=== PATIENT | female | born 1990 | race Caucasian/White ===

== ENCOUNTER 2017-06-02 13:31 | Emergency (ER) | payer MEDICAID ==
--- NOTE | 2017-06-02 15:25 | EDM.PDOC ---
ED HPI GENERAL MEDICAL PROBLEM - General Chief Complaint: Chest Pain Stated Complaint: FEELS LIKE HEART IS STRESSED Time Seen by Provider: 06/02/17 14:50 Source of Information: Reports: Patient, Family History Limitations: Reports: No Limitations - History of Present Illness INITIAL COMMENTS - FREE TEXT/NARRATIVE: Alise reports feelings of chest tightness with feeling that her heart is stretching for three days. She reports she has a history of anxiety. She states she was instructed to increase her dose of propanolol and has lorazepam to take, however she has not done this. She denies fever, chills, nausea, vomiting, change in bowel or bladder habits. - Related Data Allergies Allergy/AdvReac Type Severity Reaction Status Date / Time No Known Allergies Allergy Verified 06/02/17 14:26 Home Meds: Home Meds LORazepam 06/02/17 [History] Propranolol [Inderal] 06/02/17 [History] Ziprasidone HCl [Geodon] 60 mg PO BEDTIME 06/02/17 [History] lamoTRIgine [Lamotrigine] 06/02/17 [History] Past Medical History Psychiatric History: Reports: Anxiety, Depression Social & Family History - Tobacco Use Smoking Status *Q: Current Every Day Smoker Years of Tobacco use: 6 Packs/Tins Daily: 0.5 ED ROS GENERAL - Review of Systems Review Of Systems: See Below Constitutional: Denies: Fever, Chills, Malaise, Weakness HEENT: Reports: No Symptoms Respiratory: Denies: Shortness of Breath, Wheezing, Cough, Sputum, Hemoptysis Cardiovascular: Reports: Other (She complains of tightness to midsternal area that is intermittent. Activity does not worsen sensation. ). Denies: Blood Pressure Problem, Dyspnea on Exertion, Edema, Lightheadedness, Orthopnea, Palpitations, PND, Syncope Endocrine: Reports: No Symptoms GI/Abdominal: Reports: No Symptoms Musculoskeletal: Reports: No Symptoms Skin: Reports: No Symptoms Neurological: Reports: No Symptoms Psychiatric: Reports: Anxiety Hematologic/Lymphatic: Reports: No Symptoms Immunologic: Reports: No Symptoms ED EXAM, GENERAL - Physical Exam Exam: See Below Free Text/Narrative:: Alise is an alert, oriented and pleasant 27 year old female presenting to the Emergency room with complaints of chest tightness/stretching sensation for three days. Exam Limited By: No Limitations General Appearance: Alert, WD/WN Eye Exam: Bilateral Eye: EOMI, Normal Inspection, PERRL Ears: Normal External Exam, Normal Canal, Hearing Grossly Normal, Normal TMs Ear Exam: Bilateral Ear: Auricle Normal, Canal Normal, TM normal Throat/Mouth: Normal Inspection, Normal Lips, Normal Teeth, Normal Gums, Normal Oropharynx, Normal Voice, No Airway Compromise Head: Atraumatic, Normocephalic Neck: Normal Inspection, Supple, Non-Tender, Full Range of Motion. No: Lymphadenopathy (R), Lymphadenopathy (L) Respiratory/Chest: No Respiratory Distress, Lungs Clear, Normal Breath Sounds, No Accessory Muscle Use, Chest Non-Tender Cardiovascular: Normal Peripheral Pulses, Regular Rate, Rhythm, No Edema, No Gallop, No Murmur, No Rub Peripheral Pulses: 2+: Carotid (L), Carotid (R), Radial (L), Radial (R), Dorsalis Pedis (L), Dorsalis Pedis (R) GI/Abdominal: Normal Bowel Sounds, Soft, Non-Tender, No Organomegaly, No Distention, No Mass Back Exam: Normal Inspection, Full Range of Motion. No: CVA Tenderness (R), CVA Tenderness (L), Muscle Spasm, Paraspinal Tenderness, Vertebral Tenderness Extremities: Normal Inspection, Normal Range of Motion, Non-Tender, No Pedal Edema, Normal Capillary Refill Neurological: Alert, Oriented, CN II-XII Intact, Normal Cognition, Normal Gait, Normal Reflexes, No Motor/Sensory Deficits Psychiatric: Normal Affect, Normal Mood Skin Exam: Warm, Dry, Intact, Normal Color, No Rash Lymphatic: No Adenopathy EKG INTERPRETATION EKG Date: 06/02/17 Rhythm: NSR [place]: Normal P-Wave: Present QRS: Normal ST-T: Normal QT: Normal EKG Interpretation Comments: Normal sinus without ectopy or ST changes. Course - Vital Signs Last Recorded V/S: Last Vital Signs Temp 36.7 C 06/02/17 14:34 Pulse 79 06/02/17 15:00 Resp 13 06/02/17 15:00 BP 106/72 06/02/17 15:00 Pulse Ox 98 06/02/17 15:00 - Re-Assessments/Exams Free Text/Narrative Re-Assessment/Exam: 06/02/17 15:15 Telemetry and EKG review with patient and Dr. Landry. They are in agreement with plan. Patient will be discharged to home. She can use lorazepam 1/2 tab of her current 1mg tablets as directed for anxiety. She will start increased dose of propanolol in the morning as previously ordered. Departure - Departure Time of Disposition: 15:16 Disposition: Home, Self-Care 01 Condition: Good Clinical Impression: Anxiety Referrals: PCP,None [Primary Care Provider] - Forms: ED Department Discharge Additional Instructions: You have been evaluated and treated in the emergency room today for chest discomfort and anxiety. While you have been in the emergency room we monitored you with telemetry. There were no abnormal heart beats or vital signs during your stay. It would be best for you to take lorazepam 1/2 tablet tonight and start your increased propanolol dose in the morning as your provider suggested. Please return for worsening, issues or concerns. Drink plenty of fluids, eat a well balanced diet and get enough sleep. - Assessment/Plan Assessment:: Anxiety Plan: Patient evaluated and treated in the emergency room today for chest discomfort and anxiety. While in the emergency room she was monitored with telemetry. There were no abnormal heart beats or vital signs during her stay. EKG normal. It would be best for her to take lorazepam 1/2 tablet tonight and start the increased propanolol dose in the morning as her behavioral health provider suggested. Please return for worsening, issues or concerns. Drink plenty of fluids, eat a well balanced diet and get enough sleep.
== END 2017-06-02 16:33 | disposition home or self-care (01) ==
LOC: JP.ED 13:31
DX: F41.9 Anxiety disorder, unspecified (principal); F17.210 Nicotine dependence, cigarettes, uncomplicated
CPT/HCPCS: 99285